=== PATIENT | female | born 1995 | race Caucasian/White ===

== ENCOUNTER 2018-02-04 09:24 | Emergency (ER) | payer OTHER ==
[~2018-02-04] VITALS: Ht 152.4 cm; Wt 45.4 kg
== END 2018-02-04 14:38 | disposition home or self-care (01) ==
LOC: ER 09:24
DX: R10.2 Pelvic and perineal pain (principal)

== ENCOUNTER 2018-02-09 18:05 | Emergency (ER) | payer OTHER ==
[~2018-02-09] VITALS: Ht 152.4 cm; Wt 45.4 kg
== END 2018-02-09 22:25 | disposition home or self-care (01) ==
LOC: ER 18:05
DX: R51 Headache (principal); J01.80 Other acute sinusitis

== ENCOUNTER 2021-11-14 17:20 | Emergency (ER) | payer OTHER ==
[~2021-11-14] VITALS: Ht 152.4 cm; Wt 52.6 kg
[2021-11-14] MEDS ORDERED: BUTALBIT-ACETA1 EACH PO (19:24)
== END 2021-11-14 19:28 | disposition home or self-care (01) ==
LOC: ER 17:20
DX: G43.909 Migraine, unspecified, not intractable, without status migrainosus (principal); R11.10 Vomiting, unspecified